=== PATIENT | female | born 1950 | race Caucasian/White ===

== ENCOUNTER 2023-11-09 15:53 | Outpatient (CLI) | payer MEDICARE, BC | END 2023-11-09 23:59 | disposition home or self-care (01) | LOC: MRI 15:53 | PROVIDERS: ATTEND Podiatrist Foot & Ankle Surgery | DX: M79.672 Pain in left foot (principal); M72.2 Plantar fascial fibromatosis | CPT/HCPCS: 73721 ==

== ENCOUNTER 2024-01-24 13:49 | Outpatient (CLI) | payer MEDICARE, BC | END 2024-01-24 23:59 | disposition home or self-care (01) | LOC: MRI 13:49 | PROVIDERS: ATTEND Podiatrist Foot & Ankle Surgery | DX: M50.323 Other cervical disc degeneration at C6-C7 level (principal); M51.27 Other intervertebral disc displacement, lumbosacral region; M79.672 Pain in left foot; M72.2 Plantar fascial fibromatosis | CPT/HCPCS: 72141; 72148 ==